=== PATIENT | female | born 1930 | race Caucasian/White ===

== ENCOUNTER 2016-12-05 12:17 | Inpatient (IN) | payer OTHER, MEDICARE ==
[~2016-12-05] VITALS: Ht 152.4 cm; Wt 51.6 kg
[2016-12-05 12:24] VITALS: BP 169/76
[2016-12-05] MEDS ORDERED: AMLODIPINE BES2.5 MG PO (12:43)
[2016-12-05] MEDS ORDERED: ASPIRIN 32325 MG/TAB PO (12:43)
[2016-12-05] MEDS ORDERED: CLOPIDOGREL75 M1 PO (12:44)
[2016-12-05] MEDS ORDERED: CARVEDILOL6.25 MG PO (12:44)
[2016-12-05] MEDS ORDERED: ISOSORBIDE MONO60 M1 PO (12:44)
[2016-12-05] MEDS ORDERED: LORAZEPAM1 M1 PO (12:45)
[2016-12-05] MEDS ORDERED: LATANOPROST 2.2.5 ML OU (12:45)
[2016-12-05] MEDS ORDERED: MULTIVITAMIN1 SGL PO (12:46)
[2016-12-05] MEDS ORDERED: FISH OIL CONCEN1 SGL PO (12:46)
[2016-12-05] MEDS ORDERED: NITROGLYCERIN0.4 M1 SL (12:47)
[2016-12-05] MEDS ORDERED: ZANTAC150 M1 PO (12:47)
[2016-12-05 13:51] VITALS: BP 169/76
[2016-12-05 18:29] VITALS: BP 157/55
[2016-12-06 06:18] VITALS: BP 100/51
[2016-12-06 06:21] VITALS: BP 100/51
[2016-12-06 18:43] VITALS: BP 121/55
[2016-12-07 06:28] VITALS: BP 123/54
[2016-12-07 18:15] VITALS: BP 130/38
[2016-12-08 06:32] VITALS: BP 124/55
[2016-12-08 17:29] VITALS: BP 156/70
[2016-12-08 18:34] VITALS: BP 124/56
[2016-12-09 06:24] VITALS: BP 125/64; BP 173/83
[2016-12-09 18:16] VITALS: BP 132/45
[2016-12-10 06:20] VITALS: BP 122/48
[2016-12-10] MEDS ORDERED: KEPPRA 500MG500 MG PO (15:43)
[2016-12-10 18:46] VITALS: BP 125/52
[2016-12-11 06:20] VITALS: BP 112/58
== END 2016-12-11 15:49 | disposition home health service (06) | DRG 950 ==
LOC: MED/SURG 12:17
PROVIDERS: ADMIT Family Medicine
DX: S06.5X0D Traumatic subdural hemorrhage without loss of consciousness, subsequent encounter (principal); K59.00 Constipation, unspecified; S70.02XD Contusion of left hip, subsequent encounter; S00.83XD Contusion of other part of head, subsequent encounter; W10.8XXD Fall (on) (from) other stairs and steps, subsequent encounter

== ENCOUNTER → 2016-12-12 | Outpatient (CLI) | payer MEDICARE, OTHER ==
[2016-12-11 06:20] VITALS: BP 112/58
[~2016-12-12] MED LIST: AMLODIPINE BES2.5 MG PO; ASPIRIN 32325 MG/TAB PO; CARVEDILOL6.25 MG PO; CLOPIDOGREL75 M1 PO; FISH OIL CONCEN1 SGL PO; ISOSORBIDE MONO60 M1 PO; KEPPRA 500MG500 MG PO; LATANOPROST 2.2.5 ML OU; LORAZEPAM1 M1 PO; MULTIVITAMIN1 SGL PO; NITROGLYCERIN0.4 M1 SL; ZANTAC150 M1 PO
== END ==
LOC: RAD 12-04 12:00 → VAS 14:05 → RAD 14:05
DX: I25.119 Atherosclerotic heart disease of native coronary artery with unspecified angina pectoris (principal); I10 Essential (primary) hypertension; E78.2 Mixed hyperlipidemia; R00.2 Palpitations

== ENCOUNTER → 2019-02-21 | Outpatient (CLI) | payer MEDICARE, OTHER ==
[2019-02-21 15:16] LABS: CALCIUM 9.8 mg/dL (8.3-10.5)
== END ==
LOC: LAB 14:21
PROVIDERS: Internal Medicine
DX: E11.22 Type 2 diabetes mellitus with diabetic chronic kidney disease (principal)

== ENCOUNTER → 2020-08-06 | Outpatient (CLI) | payer MEDICARE, OTHER ==
[2020-08-06 10:47] LABS: HEMATOCRIT 38.1 % (37.0-47.0); HEMOGLOBIN 12.8 g/dL (12.5-16.0); MEAN CELL VOLUME 92 fl (78-100); MEAN CORPUSCULAR HEMOGLOBIN 31 pg (27-31); MEAN CORPUSCULAR HGB CONC 34 g/dL (33-37); MEAN PLATELET VOLUME 9.6 fl (7.4-10.4); PLATELET COUNT 170 K/mm3 (130-400); RED BLOOD COUNT 4.14 M/mm3 (4.10-5.30); RED CELL DISTRIBUTION WIDTH 13.2 % (11.5-14.5); WHITE BLOOD COUNT 10.8 K/mm3 (4.8-10.8)
[2020-08-06 10:51] LABS: POTASSIUM 4.6 mmol/L (3.5-5.1)
[2020-08-06 10:52] LABS: ALBUMIN 4.1 g/dL (3.4-4.8)
[2020-08-06 10:53] LABS: CALCIUM 10.1 mg/dL (8.3-10.5)
[2020-08-06 10:54] LABS: TOTAL PROTEIN 6.7 g/dL (6.2-8.1)
[2020-08-06 10:56] LABS: TOTAL BILIRUBIN 0.8 mg/dL (0.2-1.2)
[2020-08-06 10:59] LABS: LYMPHOCYTE 9 % (20-51); MONOCYTE 7 % (3-10); NEUTROPHILS 83 % (42-75)
== END ==
LOC: LAB 10:05
PROVIDERS: Internal Medicine
DX: E11.22 Type 2 diabetes mellitus with diabetic chronic kidney disease (principal); I12.9 Hypertensive chronic kidney disease with stage 1 through stage 4 chronic kidney disease, or unspecified chronic kidney disease; N18.32 Chronic kidney disease, stage 3b; D63.1 Anemia in chronic kidney disease